=== PATIENT | female | born 1960 | race Caucasian/White ===

== ENCOUNTER 2025-02-03 13:22 | Outpatient (AMB) | payer MEDICAID, SELFPAY ==
--- NOTE | 2025-02-03 13:42 | XR_ITS ---
EXAMINATION: Bilateral knees 2 views Bilaterally left lateral knee 2 views Bilateral Axuni single view TECHNIQUE: Bilateral AP knees standing single view, bilateral PA knees standing single view flexion Standing right lateral knee left lateral knee 2 views Bilateral Axuni single view total 5 views Date and time: February 03, 2025, 1409 hours INDICATIONS: Chronic knee pain, patient fell October 2024 with injury to both knees FINDINGS: Significant osteopenia Bilateral advanced tricompartment osteoarthritis No fractures No patellar dislocations IMPRESSION: Advanced bilateral tricompartment osteoarthritis
[2025-02-03 13:45] VITALS: BP 155/90; PULSE 117; RESP 18; TEMP 36; O2SAT 97; BMI 30.9
--- NOTE | 2025-02-03 13:45 | PD.ORTHCLVIS ---
Vital signs 02/03/25 13:45 Height 1.7 m Height Method Stated Weight 89.443 kg Weight Measurement Method Standing Scale BMI 30.9 BP 155/90 H Blood Pressure Source Automatic Cuff Blood Pressure Location Left Upper Arm Position Sitting Respiration 18 Pulse 117 H Pulse Source Monitor Temp 96.8 F Temp Source Temporal Artery Scan Pulse Oximetry (%) 97 Oxygen Delivery Method Room Air Med/Allergies Allergies & Medications Allergies guaifenesin (From Robitussin) Allergy (Intermediate, Verified 02/03/25 13:46) Hives Medication Reconciliation allopurinol 100 mg tablet 100 mg PO QDAY 11/25/19 [History Confirmed 02/03/25] hydroxyzine HCl 25 mg tablet 25 mg PO QDAY 11/25/19 [History Confirmed 02/03/25] insulin glargine 100 unit/mL (3 mL) subcutaneous pen (Basaglar KwikPen U-100 Insulin) 55 unit subcut HS 11/25/19 [History Confirmed 02/03/25] lisinopril 40 mg tablet 40 mg PO QDAY 11/25/19 [History Confirmed 02/03/25] metformin 1,000 mg tablet 1,000 mg PO BID 11/25/19 [History Confirmed 02/03/25] methotrexate sodium 2.5 mg tablet 10 mg PO QWEEK 11/25/19 [History Confirmed 02/03/25] pravastatin 10 mg tablet 10 mg PO QDAY 11/25/19 [History Confirmed 02/03/25] meloxicam 7.5 mg tablet 7.5 mg PO QDAY #45 tabs 02/03/25 [Rx] Exam Exam Patient is in no acute distress and is cooperative with the examination today. Breathing is nonlabored. In no respiratory distress. Bilateral extremities were evaluated and demonstrates sensation intact to light touch. Palpable pedal pulses are present. No significant edema is present. Bilateral hips were examined. The patient has no pain with log roll of the hips. Internal rotation to 30 degrees and external rotation to 30 degrees is painless. Negative FADIR. The left knee was examined. The left knee is in varus alignment. Range of motion from 0-115 degrees. Knee is stable to varus and valgus as well as AP translation with <5mm. Patient has a negative McMurrays. There is no pain with patellofemoral compression and no crepitus noted. The knee is tender to palpation medially. The right knee was also examined. The right knee is in varus alignment. Range of motion from 0-120 degrees. Knee is stable to varus and valgus as well as AP translation with <5mm. Patient has a negative McMurrays. There is no pain with patellofemoral compression and no crepitus noted. The knee is tender to palpation medially. I have an x-ray report [facility] that says there is severe arthritis bilaterally Assessment and Plan Problem List (1) Degenerative arthritis of knee, bilateral: Status: Acute (2) Rheumatoid arthritis: Status: Acute Plan: ASSESSMENT AND PLAN 1. Left knee pain: Increased pain in the left knee following a fall on the porch has persisted since the incident. No prior injections or anti-inflammatories for the knee were reported. Pain is exacerbated when lying on the side and is accompanied by swelling and limited range of motion. A prescription for an arthritis anti-inflammatory medication will be provided. Authorization for cortisone injections in the knees will be sought. Standing x-rays will be ordered to assess the extent of [id number] contact. If the injections and medications are effective, they will be continued; otherwise, surgical intervention will be considered. 2. Rheumatoid arthritis: Currently on methotrexate, which is typically used for rheumatoid arthritis. Education about rheumatoid arthritis and its impact on the body was provided. 3. Type 2 diabetes mellitus: Type 2 diabetes mellitus was mentioned. No changes to the current management plan were discussed during this visit. 4. Mobility issues: A DME order for a walker with a seat will be placed to assist with mobility due to wobbliness and fatigue when walking for extended periods. The walker with a seat prescription will be written, but coverage by insurance is uncertain. The patient may need to purchase it from a medical supply store. Office Procedures GNS Level of Care Nursing/Assessment Patient Status: Initial/New Patient Nursing Assessment/Reassesment: Medication Reconciliation, Update PMH in EMR and Vital Signs Coordination of Care: Complex Care and Chronic Disease 1-5, Education Complex Pt/Fam, Consent,records obtained, informed consent, 1 Ins Authorization, Lab and Imaging orders, Results/Orders obtained and Staff clarify orders New Patient Charge New Patient Point Assignment: 1124 New Patient Point Charge: PATIENT TRANSPORT ORDERLY Level 4 ([id number]) [place] Intake Visit Data Collection New Patient or Established: New Patient (never been to [facility]) Reason for Visit:: BL KNEE PAIN Seen by Clinical Staff ONLY (RN/MA): No PCP or OBGYN visit in last 3 months: Yes Hx Now: No Do You Feel Safe at Home: Yes Authorities Contacted: N/A Questionairres Past Medical History Past Medical History Have you ever been diagnosed with any of the following: Neurological Problems Cerebrovascular Accident (CVA): No Alzheimer's Disease: No Cardiology Problems Myocardial Infarction: No Angina: No Congestive Heart Failure: No Respiratory Problems Chronic Obstructive Pulmonary Disease (COPD): No Asthma: No Emphysema: No Stomache/Intestinal Problems Liver Cancer: No Pancreatic Cancer: No Genital/Urinary Problems Renal Disease: No Reproductive Problems Previous Pregnancies: Yes Head,Eye,Nose,Throat Problems Blind: No Deafness: No Endocrine Problems Diabetes Mellitus Type 1: No Diabetes Mellitus Type 2: Yes Blood Problems Sickle Cell Disease: No Other Problems Down Syndrome: No Developmental Delay: No Subjective Visit Visit for: new patient and knee Immunization / Flu Flu Vaccine in the Last 12 Months: No Flu Vaccine Exclusion Criteria: No Exclusion Criteria History of Present Illness Chief complaint: Bilateral knee pain HISTORY OF PRESENT ILLNESS I, Wallace Martinez, have obtained verbal consent from the patient, to be recorded during this encounter which may include, but not limited to, medical history, examination, treatment plans, and relevant health information.? Patient was informed that recording will be read and reviewed by myself before inclusion in the medical chart. The patient presents for evaluation of left knee pain. The patient reports bilateral knee pain worse on the left since a fall She experienced a fall on her porch, landing on her kneecap, which resulted in significant pain. The pain has been persistent since the incident, with no prior history of similar discomfort. She also reports difficulty in fully bending her knees and standing up, both of which were present before the fall. Additionally, she mentions a sensation of swelling in the affected area. She has not received any injections or anti-inflammatory medications for her knee. Her primary care physician suggested that the left knee might be more severely affected than the right, based on x-ray findings. However, she experiences pain in her right thigh when lying on her left side, a symptom that was not present before the fall. She has been managing the pain with ibuprofen. She is currently on methotrexate but is unsure if it is related to her rheumatoid arthritis. She has a history of type 2 diabetes. She reports a wobbling gait and expresses interest in obtaining a walker with a seat for support during ambulation. Pain Pain level (0-10): 3 Pain duration: CONSTANT Pain location: anterior Pain quality: sharp and dull Pain timing: increases with activity Associated signs & symptoms: stiffness Ambulatory data Ambulatory device: none Treatments Improvement with previous injections: No Improvement with PT: No Improvement with NSAIDS: no Review of Systems Review of Systems: All systems negative unless otherwise noted in HPI.
== END 2025-02-03 13:56 | disposition home or self-care (01) ==
LOC: HODSRG 13:22
PROVIDERS: PCP Family Medicine; Referring Provider Family Medicine; Supervising Provider Orthopaedic Surgery Adult Reconstructive Orthopaedic Surgery; Visit Provider Orthopaedic Surgery Adult Reconstructive Orthopaedic Surgery
DX: M17.0 Bilateral primary osteoarthritis of knee (principal); M06.9 Rheumatoid arthritis, unspecified; M25.562 Pain in left knee; E11.9 Type 2 diabetes mellitus without complications; Z79.4 Long term (current) use of insulin; Z79.84 Long term (current) use of oral hypoglycemic drugs
CPT/HCPCS: 73564; 99204; G0463